=== PATIENT | female | born 1960 | race Caucasian/White ===

== ENCOUNTER 2024-08-20 12:14 | Emergency (ER) | payer OTHER ==
[2024-08-20 12:28] VITALS: BP 150/82; PULSE 60; RESP 16; TEMP 98.6; BMI 33.0
[2024-08-20] MEDS ORDERED: LIDOCAINE 4% PATCH TP ONE (13:07)
[2024-08-20] MEDS ORDERED: IBUPROFEN 600 MG TABLET (FP) PO ONE (13:07)
[2024-08-20] MEDS ORDERED: METHOCARBAMOL 500 MG TABLET ONE (13:08)
[2024-08-20] MEDS ORDERED: ACETAMINOPHEN 500 MG TABLET (FP) ONE (13:08)
[2024-08-20] MEDS: IBUPROFEN 600 MG TABLET (FP) PO ONE (13:17)
[2024-08-20] MEDS: LIDOCAINE 4% PATCH TP ONE (13:17)
[2024-08-20] MEDS: METHOCARBAMOL 500 MG TABLET PO ONE (13:18)
[2024-08-20] MEDS: ACETAMINOPHEN 500 MG TABLET (FP) PO ONE (13:18)
== END 2024-08-20 14:01 | disposition home or self-care (01) ==
LOC: JERFT 12:14
DX: M54.32 Sciatica, left side (principal)
CPT/HCPCS: 99283-25